=== PATIENT | male | born 1995 | race Native Hawaiian/Other Pacific Islander ===

== ENCOUNTER 2020-12-07 01:52 | Emergency (ER) | payer OTHER ==
[~2020-12-07] VITALS: Ht 193 cm; Wt 154.2 kg
[2020-12-07 01:56] VITALS: BP 182/103; TEMP 99.4
== END 2020-12-07 02:34 | disposition home or self-care (01) ==
LOC: ED 01:52
DX: S01.511A Laceration without foreign body of lip, initial encounter (principal); S01.512A Laceration without foreign body of oral cavity, initial encounter; S50.311A Abrasion of right elbow, initial encounter; W01.190A Fall on same level from slipping, tripping and stumbling with subsequent striking against furniture, initial encounter; Y92.89 Other specified places as the place of occurrence of the external cause
CPT/HCPCS: 99281

== ENCOUNTER 2022-05-12 10:53 | Emergency (ER) | payer OTHER ==
[~2022-05-12] VITALS: Ht 193 cm; Wt 163.3 kg
[2022-05-12 11:04] VITALS: TEMP 98.2
[2022-05-12 12:42] VITALS: BP 133/74
== END 2022-05-12 12:43 | disposition home or self-care (01) ==
LOC: ED 10:53
DX: M10.9 Gout, unspecified (principal)
CPT/HCPCS: 36415; 84550; 99283